=== PATIENT | male | born 1985 | race Caucasian/White ===

== ENCOUNTER → 2016-11-22 | Outpatient (CLI) | payer BC ==
--- NOTE | 2016-11-22 14:55 | XR ---
EXAMINATION TYPE: XR abdomen 1V DATE OF EXAM: 11/22/2016 2:48 PM COMPARISON: NONE HISTORY: Right renal stones and right-sided abdominal upper and lower quadrant pain FINDINGS: The osseous structures are intact. The bowel gas pattern is nonspecific. Extensive retained fecal de bris throughout the colon. No suspicious calcifications. 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 IMPRESSION: 1. Nonspecific abdomen.
== END | disposition home or self-care (01) ==
LOC: RADXRMAIN 14:08
PROVIDERS: ATTEND Urology
DX: N20.0 Calculus of kidney (principal)
CPT/HCPCS: 74000

== ENCOUNTER → 2017-09-09 | Outpatient (CLI) | payer BC ==
[2017-09-09 20:03] LABS: ALT 78 U/L (21-72); AST 47 U/L (17-59); Alkaline Phosphatase 49 U/L (38-126); Anion Gap 10 mmol/L; Blood Urea Nitrogen 18 mg/dL (9-20); Calcium 9.7 mg/dL (8.4-10.2); Carbon Dioxide 28 mmol/L (22-30); Chloride 100 mmol/L (98-107); Cholesterol 200 mg/dL (<200); Glucose 112 mg/dL (74-99); HDL Cholesterol 41 mg/dL (40-60); Non-African American GFR(MDRD) >60 (>60 ml/min/1.73 sqM); Potassium 4.3 mmol/L (3.5-5.1); Sodium 138 mmol/L (137-145); Total Bilirubin 0.7 mg/dL (0.2-1.3); Total Protein 7.2 g/dL (6.3-8.2)
[2017-09-09 20:13] LABS: Basophils % (A) 1 %; CH 30.6; CHCM 35.3; Eosinophils # (A) 0.1 k/uL (0-0.7); Eosinophils % (A) 1 %; HCT 45.2 % (39.0-53.0); HDW 2.62; HGB 15.6 gm/dL (13.0-17.5); Luc # (Auto) 0.12; Luc % (Auto) 2; Lymphocytes # (A) 2.6 k/uL (1.0-4.8); Lymphocytes % (A) 40 %; MCH 30.1 pg (25.0-35.0); MCHC 34.6 g/dL (31.0-37.0); Mean Platelet Volume 7.5; Monocytes # (A) 0.3 k/uL (0-1.0); Monocytes % (A) 5 %; Neutrophils # (A) 3.3 k/uL (1.3-7.7); Neutrophils % (A) 51 %; RDW 12.3 % (11.5-15.5); WBC 6.4 k/uL (3.8-10.6); WBC (Perox) 6.42
== END ==
LOC: MMGSC 10:56
PROVIDERS: ATTEND Family Medicine
DX: Z00.00 Encounter for general adult medical examination without abnormal findings (principal); I10 Essential (primary) hypertension
CPT/HCPCS: 36415; 80053; 80061; 84439; 84443; 85025

== ENCOUNTER 2017-10-27 19:04 | Emergency (ER) | payer OTHER, BC ==
[2017-10-27 19:43] VITALS: BP 133/76; PULSE 77; RESP 18; TEMP 99.7
--- NOTE | 2017-10-27 20:12 | XR ---
EXAMINATION TYPE: XR knee complete RT DATE OF EXAM: 10/27/2017 CLINICAL HISTORY: Right knee pain after fall TECHNIQUE: Three views of the right knee are obtained. COMPARISON: None. FINDINGS: There is no acute fracture/dislocation evident in right knee. The tri-compartment joint s paces appear within normal limits. The overlying soft tissue appears unremarkable. Well-corticated p atellar fragment may represent a bipartite patella or sequela of prior trauma. IMPRESSION: There is no acute fracture or dislocation in the right knee.
--- NOTE | 2017-10-27 20:35 | ED ---
Fall HPI - General Chief Complaint: Fall Stated Complaint: Fall Time Seen by Provider: 10/27/17 19:56 Source: patient, RN notes reviewed Mode of arrival: ambulatory - History of Present Illness Initial Comments: This is a 32-year-old male who presents to the emergency department with chief complaint of fall. Patient states that while at work this evening at approximately 7 PM he fell getting out of his ambulance. He slipped on the wet floor. Patient states that his right knee twisted as he fell and he landed on his back. Patient states that he is able to bear weight and ambulate. He states the pain is localized to the center of his knee but deep inside. Denies any other injuries. Denies fever, chills, chest pain, shortness of breath, abdominal pain, nausea or vomiting, constipation or diarrhea, dysuria or hematuria, numbness or tingling, headache or vision changes. - Related Data Home Medications Medication Instructions Recorded Confirmed Dextroamphetamine/Amphetamine 10 mg PO BID 10/27/17 10/27/17 [Adderall] Hydrochlorothiazide [Hydrodiuril] 25 mg PO DAILY 10/27/17 10/27/17 amLODIPine [Norvasc] 10 mg PO DAILY 10/27/17 10/27/17 Allergies Allergy/AdvReac Type Severity Reaction Status Date / Time No Known Allergies Allergy Verified 10/27/17 19:50 Review of Systems ROS Statement: Those systems with pertinent positive or pertinent negative responses have been documented in the HPI. ROS Other: All systems not noted in ROS Statement are negative. Past Medical History Past Medical History: Hypertension History of Any Multi-Drug Resistant Organisms: None Reported Additional Past Surgical History / Comment(s): radial and ulnar screws Past Psychological History: ADD/ADHD Smoking Status: Former smoker Past Alcohol Use History: None Reported Past Drug Use History: None Reported General Exam - General Exam Comments Initial Comments: General: Awake and alert, well-developed; in no apparent distress. HEENT: Head atraumatic, normocephalic. Pupils are equal, round and reactive to light. Extraocular movements intact. Neck: Supple. Normal ROM. No tenderness. Cardiovascular: Regular rate and rhythm. No murmurs, rubs or gallops. Chest symmetrical. Respiratory: Lungs clear to auscultation bilaterally. No wheezes, rales or rhonchi. Normal respiratory effort with no use of accessory muscles. Musculoskeletal: Normal active range of motion of right knee. Tenderness elicited with valgus stress. No swelling or erythema noted. Pedal pulses are 2 + equal and palpable bilaterally. Skin: [place], warm and dry without rashes or lesions. Neurological: Alert and oriented x3. CN II-XII grossly intact. Speech is fluent and answers are appropriate. No focal neuro deficits. Psychiatric: Normal mood and affect. No overt signs of depression or anxiety noted. Limitations: no limitations Course Vital Signs 10/27/17 19:38 Temperature 99.7 F H Pulse Rate 77 Respiratory 18 Rate Blood Pressure 133/76 O2 Sat by Pulse 98 Oximetry Medical Decision Making - Medical Decision Making This is a 32-year-old male who presents to emergency department with chief complaint of right knee injury. Patient has normal active range of motion and is able to ambulate. X-ray revealed no evidence of acute fracture or dislocation. Patient was recommended rest, ice and elevation as well as Tylenol or ibuprofen as needed. He is to follow-up with his primary care provider or orthopedics. Patient is in agreement with plan and voices understanding. All questions were answered. - Radiology Data Radiology results: report reviewed Right knee x-ray impression: There is no acute fracture or dislocation in the right knee. Disposition Clinical Impression: Acute internal derangement of right knee Disposition: HOME SELF-CARE Condition: Good Instructions: Knee Sprain (ED) Additional Instructions: Please follow-up with orthopedics, Dr. Ingram within 1-2 days. Please follow up with primary care provider within 1-2 days. Return to emergency department if symptoms should worsen or any concerns arise. Referrals: Keke Allison MD [Primary Care Provider] - 1-2 days Serg Ingram MD [STAFF PHYSICIAN] - 1-2 days Time of Disposition: 20:37
== END 2017-10-27 20:42 | disposition home or self-care (01) ==
LOC: EC 19:04
DX: S89.91XA Unspecified injury of right lower leg, initial encounter (principal); I10 Essential (primary) hypertension; F90.9 Attention-deficit hyperactivity disorder, unspecified type; Z87.891 Personal history of nicotine dependence; Z79.899 Other long term (current) drug therapy; W01.0XXA Fall on same level from slipping, tripping and stumbling without subsequent striking against object, initial encounter; Y92.69 Other specified industrial and construction area as the place of occurrence of the external cause; Y99.0 Civilian activity done for income or pay
CPT/HCPCS: 99283

== ENCOUNTER → 2017-11-04 | Outpatient (CLI) | payer OTHER ==
--- NOTE | 2017-11-04 10:18 | MR ---
EXAMINATION TYPE: MR knee RT wo con DATE OF EXAM: 11/04/2017 COMPARISON: Radiographs 10/27/2017 HISTORY: 32-year-old male with pain, sprain right knee TECHNIQUE: Multiplanar, multisequence imaging of the right knee is performed without IV contrast. FINDINGS: ACL, PCL, MCL, and LCL complex are intact. The medial and lateral menisci are intact. Minimal irregular cartilage loss focally along the mid central aspect of the medial femoral condyle. Otherwise, overall tricompartmental articular cartilage volumes are maintained. Small knee joint effusion may be within physiologic range. No Bernardo's cyst. There is a tiny bipartite patella along the superolateral margin. There may be an tiny associated int rasubstance tear of the adjacent inserting quadriceps tendon. The extensor mechanism is otherwise lar grace intact. Trace effusion in the deep infrapatellar bursa. Normal popliteal artery anatomy and muscle bulk. No suspicious bone marrow replacement. No muscular e valery seen. IMPRESSION: 1. Bipartite patella. There may be a tiny associated intrasubstance tear of the inserting quadriceps tendon fibers here (along the superior, superolateral margin of the patella). Correlate for any focal pain in this location. 2. Small knee joint effusion probably within physiologic range. 3. Mild focal irregular cartilage loss within the medial compartment suggests minimal early degenerat shaista changes.
== END | disposition home or self-care (01) ==
LOC: RADMRIMAIN 07:05
PROVIDERS: ATTEND Emergency Medicine
DX: M25.461 Effusion, right knee (principal); M24.10 Other articular cartilage disorders, unspecified site; Q74.1 Congenital malformation of knee

== ENCOUNTER → 2018-01-02 | Outpatient (CLI) | payer BC ==
[2018-01-02 20:42] LABS: ALT 73 U/L (21-72); AST 60 U/L (17-59); Albumin 4.7 g/dL (3.5-5.0); Alkaline Phosphatase 45 U/L (38-126); Anion Gap 12 mmol/L; Blood Urea Nitrogen 18 mg/dL (9-20); Calcium 10.1 mg/dL (8.4-10.2); Carbon Dioxide 31 mmol/L (22-30); Chloride 99 mmol/L (98-107); Cholesterol 195 mg/dL (<200); Glucose 109 mg/dL (74-99); HDL Cholesterol 46 mg/dL (40-60); LDL Cholesterol,Calculated 122 mg/dL (0-99); Potassium 4.2 mmol/L (3.5-5.1); Sodium 142 mmol/L (137-145); Total Bilirubin 0.7 mg/dL (0.2-1.3); Total Protein 7.4 g/dL (6.3-8.2); Triglycerides 137 mg/dL (<150)
== END | disposition home or self-care (01) ==
LOC: MMGSC 12:46
PROVIDERS: ATTEND Family Medicine
DX: I10 Essential (primary) hypertension (principal)
CPT/HCPCS: 36415; 80053; 80061

== ENCOUNTER → 2018-01-28 | Outpatient (CLI) | payer BC | END | disposition home or self-care (01) | LOC: MMGSC 14:02 | PROVIDERS: ATTEND Family Medicine | DX: J02.9 Acute pharyngitis, unspecified (principal) | CPT/HCPCS: 87070 ==